=== PATIENT | female | born 1985 | race Caucasian/White ===

== ENCOUNTER 2017-03-07 09:20 | Inpatient (IN) ==
[2017-03-07] MEDS ORDERED: CITRIC ACID/SODIUM CITRATE 30ml PO ONE (09:40)
[2017-03-07] MEDS ORDERED: FAMOTIDINE PB 20 MG/50 ML BAG IV ONE (09:40)
[2017-03-07] MEDS ORDERED: CEFAZOLIN PREMIX (MC ONLY) 2 GM/50 ML BAG IV ONE (09:40)
[2017-03-07] MEDS: LR 1,000 ML IV SCH ×7 (10:20→23:14)
[2017-03-07 10:33] VITALS: BMI 38.2
[2017-03-07] MEDS ORDERED: MORPHINE SULFATE PF 5mg/10ml INJ (Duramorph) EPI ONE (11:34)
[2017-03-07] MEDS ORDERED: FentaNYL 100 MCG/2 ML INJECTION IVP ONE (11:35)
[2017-03-07] MEDS ORDERED: ONDANSETRON 4 MG/2 ML INJECTION IVP ONE (11:36)
[2017-03-07] MEDS ORDERED: PHENYLEPHRINE INJ 10 MG/ML VIAL IV ONE (11:37)
[2017-03-07] MEDS ORDERED: GLYCOPYRROLATE 0.4 MG/2 ML INJECTION IVP ONE (12:08)
[2017-03-07] MEDS: OXYTOCIN BOLUS BAG 30 UNIT/500 ML ML IV SCH ×2 (12:12→12:33)
--- NOTE | 2017-03-07 12:21 | Anesthesia Preoperative Report ---
Anesthesia Epidural/Spinal Rec - Date and Time Date: 03/07/17 Preoperative Diagnosis: Repeat Procedure: Plan: Spinal - Vital Signs Vital Signs: Temperature 98.6 F 03/07/17 10:12 Pulse Rate 66 03/07/17 10:12 Respiratory Rate 16 03/07/17 10:12 Blood Pressure 120/75 03/07/17 10:12 Pulse Oximetry 98 03/07/17 10:12 /Para: P:2 - Medictaions & Allergies Inpatient Medications: Current Medications Lactated Ringer's (Lactated Ringers) 1,000 mls @ 999 mls/hr IV .Q1H1M [facility] Last Admin: 03/07/17 11:12 Dose: 999 mls/hr Oxytocin (Pitocin Bolus Bag) 30 unit in 500 mls @ 999 mls/hr IV .Q31M [facility] Stop: 03/07/17 12:00 Last Admin: 03/07/17 12:12 Dose: 999 mls/hr Isopropyl Alcohol (Nozin Nasal Swab) 1 each ZACH 0600,1400,2200 [facility] Allergies/Adverse Reactions: Allergies Allergy/AdvReac Type Severity Reaction Status Date / Time latex Allergy Mild RASH Verified 08/12/14 22:41 - Home Medications Home Medications: Home Medications Medication Instructions Recorded Confirmed Type Vitamins 1 tab PO DAILY 03/02/17 03/04/17 History Valacyclovir [Valtrex] 1 tab PO TID 03/04/17 03/04/17 History - Medical History Renal/Endocrine: Reports: Other (gestational diabetes with pg.) Other History: Reports: Now - Surgical History HEENT Surgeries: Reports: Tonsillectomy (as teenager) Reproductive Surgery/Treatment: Reports: Section Anesthesia Reactions: None Hx Family Anesthesia Reaction: No History of Motion Sickness: No - Social History Smoking Status: Never smoker Second Hand Exposure: No Substance Use Type: does not use Alcohol Intake Frequency: does not drink Hx Chewing Tobacco Use: No - Pertinent Findings Lab Data: CBC and BMP 03/07/17 10:06 EKG Rhythm: Normal Sinus Rhythm - Physical Exam Respiratory Exam: lungs clear Cardiovascular Exam: regular rate and rhythm - Airway Assessment Mallampati Score: II TMD: 3 Fingerbreadths Neck Extension: good Overall Assessment: may be difficult intubation - ASA ASA Score: 2 - Discussion Discussion: Discussed risks/options/alternatives of anesthesia and questions answered. Patient consents. Nursing pain assessment noted. Anesthesia Discussion: spouse Attestation Statement: Prior to the delivery of any anesthetic medication, I examined the patient, developed the plan, obtained the patient's consent and discussed the risk and benefits of the procedure with the patient/guardian.
[2017-03-07] MEDS ORDERED: ONDANSETRON 4 MG/2 ML INJECTION IVP PRN (12:22)
[2017-03-07] MEDS ORDERED: DiphenhydrAMINE 50 MG/ML INJECTION IVP PRN (12:22)
[2017-03-07] MEDS ORDERED: NALBUPHINE 10 MG/ML INJECTION IVP PRN (12:22)
[2017-03-07] MEDS ORDERED: METOCLOPRAMIDE 10mg/2ml INJECTION IVP PRN (12:22)
[2017-03-07] MEDS ORDERED: NALOXONE 2 MG/2 ML INJECTION PFS IVP PRN (12:22)
[2017-03-07] MEDS ORDERED: HYDROCORTISONE 2.5% CREAM 30gm RECTALLY PRN (12:59)
[2017-03-07] MEDS ORDERED: CALCIUM CARBONATE Chewable 500mg TABLET PO PRN (12:59)
[2017-03-07] MEDS ORDERED: SIMETHICONE 80 MG CHEWABLE TABLET PO PRN (12:59)
[2017-03-07] MEDS ORDERED: ACETAMINOPHEN 500 MG TABLET PO PRN (12:59)
[2017-03-07] MEDS ORDERED: DiphenhydrAMINE 25 MG CAPSULE PO PRN (12:59)
--- NOTE | 2017-03-07 12:59 | Operative Note ---
Operative Note - Date of Operation Date of Operation: 03/07/17 - General : 3 Para: 2 Estimated or Known Gestational Age (weeks): 39 Estimated or Known Gestational Age (days): 1 - Preoperative Diagnosis Previous Section, Gestational Diabetes (A1), Other (Polyhydramnios) - Postoperative Diagnosis same as preoperative - Procedure Repeat, Low-transverse - Surgeon Surgeon: Tenisha Jimenez MD - Cheerleading Coach OB Cheerleading Coach: Aniket Valdivia MD - Anesthesia Anesthesia Provider: Cm Sparks CRNA Anesthesia Type: Spinal - Complications Complications: None - Estimated Blood Loss Estimated Blood Loss:: 700 - Findings Findings: viable male, clear fluids, normal uterus, normal adenexa, OT, other ( Polyhydramnios. Thin CAITLYN.) - APGARS : 9,9 - Madeline Weight Madeline Weight (grams): 3934 - Madeline Name Madeline Name: Yaya - Description of Procedure Description of Procedure: The patient was taken to the operating room where anesthesia was obtained . She was placed in the dorsal supine position with a leftward tilt. A Johns catheter was placed . She was prepared and draped in the normal sterile fashion. A Pfannenstiel incision was made through her previous incision and carried down to the fascia. The fascia was incised in the midline with the scalpel and then extended laterally with the Jones scissors. The fascia was elevated, and the underlying rectus muscles were dissected off. The peritoneum was entered during the dissection. This was extended superiorly and inferiorly with good visualization of the bladder. There was a band of bladder adhesions to the left , anterior uterus that were taken down sharply with the Metzenbaum scissors. The bladder blade was inserted. A bladder flap was created sharply. The lower uterine segment was thin, so the incision was made a little higher on the uterus than the last incision. The lower uterine segment was incised in a transverse fashion [id number] with the scalpel and bluntly extended. The membranes were ruptured. The s head was delivered atraumatically. The nose and mouth were suctioned. The cord was clamped and cut. The infant was handed to Dr. Marrero who was asked to attend the delivery due to polyhydramnios. The placenta delivered spontaneously. The uterus was exteriorized and cleared of all clots and debris. The uterus was closed with running, locked 0-monocryl. Hemostasis was obtained on the serosal edges with cautery. The uterus was returned to the abdomen. The gutters were cleared of all clots and debris. The uterine incision was inspected one final time and still noted to be hemostatic. The peritoneum was closed with running 2-0 vicryl. Hemostasis was obtained in the rectus muscles with the cautery. The fascia was closed with running 0-vicryl. Hemostasis was obtained in the subcutaneous tissue with the cautery. The deep tissue was closed with running 2-0 chromic. The skin was closed with 4-0 vicryl in a subcuticular manner. Steri-strips were placed. Sponge, sharp, and instrument counts were correct. The patient tolerated the procedure well and was taken to the recovery room in good condition.
[2017-03-07] MEDS ORDERED: OXYTOCIN DRIP 30 UNIT/500 ML ML IV SCH (13:00)
[2017-03-07] MEDS: D5LR 1,000 ML IV SCH (13:02)
[2017-03-07] MEDS: NOZIN NASAL SWAB NAS SCH (19:38)
[2017-03-07] MEDS: SIMETHICONE 80 MG CHEWABLE TABLET PO SCH ×2 (19:38→21:54)
--- NOTE | 2017-03-07 20:14 | Anesthesia Postoperative Note ---
- Date and Time Date: 03/07/17 Time: 20:14 - Status Patient Participated in Evaluation: Patient Participated in Person Vital Signs: Temperature 98.2 F 03/07/17 16:45 Pulse Rate 69 03/07/17 16:45 Respiratory Rate 16 03/07/17 16:45 Blood Pressure 111/60 03/07/17 16:45 Pulse Oximetry 98 03/07/17 16:45 Respiratory Function: Airway Patent Mental Status: Alert and Oriented Pain Intensity: 0 Hydration: Taking PO Fluids Complications During Recover: None Apparent - Follow-Up Instructions Instructions: Per Surgeon
[2017-03-08] MEDS: NOZIN NASAL SWAB NAS SCH ×4 (03:03→22:58)
[2017-03-08] MEDS: D5LR 1,000 ML IV SCH ×2 (03:03→18:01)
[2017-03-08] MEDS: SIMETHICONE 80 MG CHEWABLE TABLET PO SCH ×5 (03:03→22:13)
--- NOTE | 2017-03-08 07:52 | OB/GYN Progress Note ---
OB-PP Progress Note - General PPD1 Maternal Group B Strep: Negative Maternal blood type: A+ Maternal Rubella Status: Immune - Subjective Date: 03/08/17 Lochia: Minimal Pain: controlled Voiding: vu still in place Nausea or Vomiting Present: No - Objective Vital Signs: Last Vital Signs Temp 98 F 03/08/17 05:00 Pulse 79 03/08/17 05:00 Resp 17 03/08/17 05:00 BP 115/63 03/08/17 05:00 Pulse Ox 98 03/08/17 05:00 General: alert and oriented Abdomen: fundus firm, non-tender, soft, non-distended Incision: clean, dry, intact Extremities: non-tender Laboratory: Laboratory Results - last 24 hr 03/07/17 03/07/17 03/07/17 10:06 10:06 11:11 WBC 8.7 RBC 4.50 Hgb 13.0 Hct 39.1 MCV 86.9 MCH 28.9 MCHC 33.2 RDW Std Deviation 44.0 Plt Count 233 MPV 10.2 Immature Gran % (Auto) 0.6 H Neut % (Auto) 72.9 H Lymph % (Auto) 19.0 L Cecil % (Auto) 6.1 Eos % (Auto) 1.3 Baso % (Auto) 0.1 Neut # (Auto) 6.4 Lymph # (Auto) 1.7 Cecil # (Auto) 0.5 Eos # (Auto) 0.1 Baso # (Auto) 0.0 Abs Immat Gran (auto) 0.05 H Glucometer 67 Blood Type A Positive Antibody Screen Positive A* Antibody Identification No Antibody Identified 03/07/17 03/07/17 16:02 17:29 WBC 11.4 H RBC 4.21 Hgb 12.4 Hct 36.6 MCV 86.9 MCH 29.5 MCHC 33.9 RDW Std Deviation 43.2 Plt Count 216 MPV 9.9 Immature Gran % (Auto) Neut % (Auto) Lymph % (Auto) Cecil % (Auto) Eos % (Auto) Baso % (Auto) Neut # (Auto) Lymph # (Auto) Cecil # (Auto) Eos # (Auto) Baso # (Auto) Abs Immat Gran (auto) Glucometer 72 Blood Type Antibody Screen Antibody Identification - Assessment Assessment: Repeat C/S, Other (A1 GDM) - Plan Plan: routine care (DC vu. Check FBS)
[2017-03-08] MEDS: DOCUSATE CALCIUM 240 MG CAPSULE PO SCH (09:15)
[2017-03-08] MEDS: HYDROCODONE/APAP 5mg/325mg TABLET PO PRN ×2 (14:05→22:13)
[2017-03-08] MEDS: IBUPROFEN 800 MG TABLET PO PRN (14:06)
[2017-03-09] MEDS: IBUPROFEN 800 MG TABLET PO PRN (05:14)
[2017-03-09] MEDS: HYDROCODONE/APAP 5mg/325mg TABLET PO PRN (05:15)
[2017-03-09 05:36] VITALS: BP 110/78; PULSE 72; RESP 18; TEMP 99; O2SAT 100
--- NOTE | 2017-03-09 07:49 | OB/GYN Progress Note ---
OB-PP Progress Note - General PPD2 Maternal Group B Strep: Negative Maternal blood type: A+ Maternal Rubella Status: Immune - Subjective Date: 03/09/17 Lochia: Minimal Pain: controlled Voiding: voiding - Objective Vital Signs: Last Vital Signs Temp 99.0 F 03/09/17 05:16 Pulse 72 03/09/17 05:16 Resp 18 03/09/17 05:16 BP 110/78 03/09/17 05:16 Pulse Ox 100 03/09/17 05:16 General: alert and oriented Abdomen: fundus firm, non-tender Incision: normal, clean, no erythema, dry, intact Extremities: non-tender Laboratory: Laboratory Results - last 24 hr 03/08/17 07:59 Glucometer 70 - Assessment Assessment: Repeat C/S, Other (A1 GDM) - Plan Plan: routine care, discharge home, continue PNV
[2017-03-09] MEDS: DOCUSATE CALCIUM 240 MG CAPSULE PO SCH (08:49)
[2017-03-09] MEDS: NOZIN NASAL SWAB NAS SCH (08:49)
[2017-03-09] MEDS: SIMETHICONE 80 MG CHEWABLE TABLET PO SCH (08:49)
== END 2017-03-09 09:18 | disposition home or self-care (01) | DRG 765 ==
LOC: MC 09:20
PROVIDERS: ADMIT Obstetrics & Gynecology; ATTEND Obstetrics & Gynecology